=== PATIENT | male | born 1985 | race African-American/Black ===

== ENCOUNTER 2022-07-03 02:54 | Inpatient (IN) | payer OTHER ==
[~2022-07-03] VITALS: Ht 182.9 cm; Wt 99.6 kg
[2022-07-03] VITALS (78 sets, daily range): BP systolic 105–159; BP diastolic 59–87
[2022-07-03 08:30] LABS: BASO% 0.2 % (0-3); EOS% 0.2 % (0-8); HEMATOCRIT 41.9 % (39.0-50.0); HEMOGLOBIN 13.5 g/dl (14.0-18.0); IMMATURE GRANULOCYTES 0.1 % (0.0-5.0); LYMPH% 19.7 % (15-41); MEAN CELL VOLUME 89.9 fL CALC (80.0-100.0); MEAN CORPUSCULAR HGB CONC 32.2 g/dL CAL (32.0-36.0); MONO% 8.4 % (2-13); NEUT# 8.65 thou/uL (1.82-7.42); NEUT% 71.4 % (42-76); RED BLOOD COUNT 4.66 mill/uL (4.70-6.10); RED CELL DISTRI WIDTH 11.7 % (11.5-15.5)
[2022-07-03 08:45] LABS: ALBUMIN 4.4 g/dL (3.2-5.0); ALKALINE PHOSPHATASE 44 u/l (38-126); ANION GAP 14 (6-22 (CALC)); BILIRUBIN, TOTAL 0.7 mg/dL (0.2-1.3); BUN 11 mg/dL (9-20); BUN/CREATININE RATIO 10 (12-20 (CALC)); CARBON DIOXIDE 26 mmol/l (22-30); CHLORIDE 102 mmol/l (95-108); CREATININE 1.2 mg/dL (0.7-1.3); GFR FOR AFR.AMER. > 60 ML/MIN (>=60 (CALC)); GFR OTHER RACES > 60 ML/MIN (>=60 (CALC)); SGOT/AST 31 u/l (17-59); SODIUM 138 mmol/l (137-146)
[2022-07-04] VITALS (18 sets, daily range): BP systolic 106–137; BP diastolic 60–78
[2022-07-04 05:41] LABS: HEMATOCRIT 40.7 % (39.0-50.0); HEMOGLOBIN 13.1 g/dl (14.0-18.0); MEAN CELL VOLUME 91.3 fL CALC (80.0-100.0); MEAN CORPUSCULAR HGB 29.4 pG CALC (26.0-32.0); MEAN CORPUSCULAR HGB CONC 32.2 g/dL CAL (32.0-36.0); RED BLOOD COUNT 4.46 mill/uL (4.70-6.10); RED CELL DISTRI WIDTH 11.7 % (11.5-15.5)
[2022-07-04 06:08] LABS: ALKALINE PHOSPHATASE 35 u/l (38-126); ANION GAP 9 (6-22 (CALC)); BILIRUBIN, TOTAL 0.6 mg/dL (0.2-1.3); BUN 11 mg/dL (9-20); BUN/CREATININE RATIO 11 (12-20 (CALC)); CARBON DIOXIDE 31 mmol/l (22-30); CHLORIDE 102 mmol/l (95-108); CREATININE 1.1 mg/dL (0.7-1.3); GFR FOR AFR.AMER. > 60 ML/MIN (>=60 (CALC)); GFR OTHER RACES > 60 ML/MIN (>=60 (CALC)); MAGNESIUM 1.9 mg/dL (1.6-2.3); POTASSIUM 4.3 mmol/l (3.5-5.1); SGOT/AST 27 u/l (17-59); SODIUM 138 mmol/l (137-146); TOTAL PROTEIN 7.3 g/dL (6.3-8.2)
[2022-07-05] VITALS (21 sets, daily range): BP systolic 104–137; BP diastolic 57–77
[2022-07-06] VITALS (10 sets, daily range): BP systolic 107–129; BP diastolic 62–77
[2022-07-06 05:42] LABS: HEMATOCRIT 40.7 % (39.0-50.0); HEMOGLOBIN 13.4 g/dl (14.0-18.0); MEAN CELL VOLUME 89.8 fL CALC (80.0-100.0); MEAN CORPUSCULAR HGB 29.6 pG CALC (26.0-32.0); MEAN CORPUSCULAR HGB CONC 32.9 g/dL CAL (32.0-36.0); RED BLOOD COUNT 4.53 mill/uL (4.70-6.10); RED CELL DISTRI WIDTH 11.3 % (11.5-15.5)
[2022-07-06 06:06] LABS: ALBUMIN 3.8 g/dL (3.2-5.0); ALKALINE PHOSPHATASE 37 u/l (38-126); ANION GAP 9 (6-22 (CALC)); BUN 16 mg/dL (9-20); BUN/CREATININE RATIO 13 (12-20 (CALC)); CARBON DIOXIDE 31 mmol/l (22-30); CHLORIDE 102 mmol/l (95-108); CREATININE 1.3 mg/dL (0.7-1.3); GFR FOR AFR.AMER. > 60 ML/MIN (>=60 (CALC)); GFR OTHER RACES > 60 ML/MIN (>=60 (CALC)); POTASSIUM 4.3 mmol/l (3.5-5.1); SGOT/AST 22 u/l (17-59); SODIUM 137 mmol/l (137-146); TOTAL PROTEIN 6.9 g/dL (6.3-8.2)
[2022-07-06 06:12] LABS: BILIRUBIN, TOTAL 0.3 mg/dL (0.2-1.3)
[2022-07-07] VITALS (15 sets, daily range): BP systolic 123–141; BP diastolic 66–80
[2022-07-07 04:54] LABS: BASO% 0.3 % (0-3); EOS% 0.8 % (0-8); HEMATOCRIT 42.2 % (39.0-50.0); HEMOGLOBIN 14.1 g/dl (14.0-18.0); IMMATURE GRANULOCYTES 0.2 % (0.0-5.0); MEAN CELL VOLUME 88.3 fL CALC (80.0-100.0); MEAN CORPUSCULAR HGB 29.5 pG CALC (26.0-32.0); MEAN CORPUSCULAR HGB CONC 33.4 g/dL CAL (32.0-36.0); MONO% 12.5 % (2-13); NEUT# 8.02 thou/uL (1.82-7.42); NEUT% 68.2 % (42-76); RED BLOOD COUNT 4.78 mill/uL (4.70-6.10); RED CELL DISTRI WIDTH 11.4 % (11.5-15.5)
[2022-07-07 05:07] LABS: ANION GAP 10 (6-22 (CALC)); BUN 15 mg/dL (9-20); BUN/CREATININE RATIO 12 (12-20 (CALC)); CARBON DIOXIDE 30 mmol/l (22-30); CHLORIDE 102 mmol/l (95-108); CREATININE 1.2 mg/dL (0.7-1.3); GFR FOR AFR.AMER. > 60 ML/MIN (>=60 (CALC)); GFR OTHER RACES > 60 ML/MIN (>=60 (CALC)); MAGNESIUM 2.1 mg/dL (1.6-2.3); SODIUM 138 mmol/l (137-146)
[2022-07-08 00:10] VITALS: BP 109/79
[2022-07-08 00:55] VITALS: BP 118/65
[2022-07-08 04:22] VITALS: BP 128/70
[2022-07-08 06:33] VITALS: BP 123/72
[2022-07-08] MEDS ORDERED: HYDROCO/APAP1 TA9 PO (09:23)
[2022-07-08 11:00] VITALS: BP 120/71
== END 2022-07-08 12:54 | DRG 200 ==
LOC: ED 02:54 → ED-I 06:20 → ED 07:03 → ICU 07:04 → MS2 07-04 20:55 → ICU 07-05 18:40 → MS2 07-07 10:10
PROVIDERS: Family Medicine; Internal Medicine; ADMIT Internal Medicine; ATTEND Internal Medicine
PROC: 0W9930Z Drainage of Right Pleural Cavity with Drainage Device, Percutaneous Approach (ICD-10-PCS; principal; 2022-07-03)
PROC: 0HQ6XZZ Repair Back Skin, External Approach (ICD-10-PCS; 2022-07-03)
PROC: 0WP9X0Z Removal of Drainage Device from Right Pleural Cavity, External Approach (ICD-10-PCS; 2022-07-07)
DX: S27.2XXA Traumatic hemopneumothorax, initial encounter (principal); J95.812 Postprocedural air leak; S21.211A Laceration without foreign body of right back wall of thorax without penetration into thoracic cavity, initial encounter; X99.9XXA Assault by unspecified sharp object, initial encounter; Y92.149 Unspecified place in prison as the place of occurrence of the external cause; Y83.8 Other surgical procedures as the cause of abnormal reaction of the patient, or of later complication, without mention of misadventure at the time of the procedure
CPT/HCPCS: J2060